=== PATIENT | female | born 1990 | race Caucasian/White ===

== ENCOUNTER 2017-09-30 11:02 | Emergency (ER) | payer BC ==
[~2017-09-30] VITALS: Ht 167.6 cm; Wt 70.0 kg
[~2017-09-30 11:02] MED LIST: COLACE100 MG PO; IBUPROFEN600 MG PO; PERCODAN TABLET1 TAB PO; PRENATAL COMPLE1 TAB PO
[2017-09-30 11:17] VITALS: Ht 167.6 cm; Wt 70.0 kg
[2017-09-30 12:11] LABS: BASOPHILS 0.4 % (0-2); EOSINOPHILS 0.7 % (0-7); HEMATOCRIT 40.7 % (36.0-48.0); HEMOGLOBIN 14.3 g/dL (12-16); IMMATURE GRANULOCYTES 0.1 % (0-5); LYMPHOCYTES 27.5 % (15-50); MCH 32.4 pg (26.0-34.0); MCHC 35.1 g/dL (31.0-37.0); MCV 92.1 fL (80.0-100.0); MEAN PLATELET VOLUME 9.7 fL (7.4-10.4); MONOCYTES 4.4 % (2-11); NEUTROPHILS 66.9 % (40-80); RBC 4.42 10x6/uL (4.00-5.40); RDW 13.2 % (11.5-14.5); WBC 6.8 10x3/uL (4.8-10.8)
[2017-09-30 12:18] LABS: PLATELET COUNT 319 10x3/uL (130-400)
[2017-09-30 12:34] LABS: APPEARANCE HAZY (CLEAR); BILIRUBIN NEGATIVE (NEGATIVE); COLOR YELLOW (YELLOW); GLUCOSE NEGATIVE (NEGATIVE); KETONE NEGATIVE (NEGATIVE); NITRITE NEGATIVE (NEGATIVE); PH 5.5 (5.0-6.0); PROTEIN NEGATIVE (NEGATIVE); UROBILINOGEN NORMAL (NORMAL)
[2017-09-30 12:35] LABS: HCG SERUM NEGATIVE (NEGATIVE)
[2017-09-30 12:38] LABS: BACTERIA MODERATE /hpf (NONE SEEN); CALCIUM OXALATE CRYSTALS OCC /hpf (NONE SEEN); EPITHELIAL CELLS 0-5 /hpf (0-5); HYALINE CAST RARE /lpf (NONE SEEN); MUCUS >1+ /lpf (NONE SEEN); RED CELLS - URINE 0-5 /hpf (0-5); WHITE CELLS - URINE 0-5 /hpf (0-5)
[2017-09-30] MEDS ORDERED: NAPROSYN500 MG PO (13:15)
[2017-09-30 13:31] VITALS: BP 113/77
== END 2017-09-30 13:30 | disposition home or self-care (01) ==
LOC: D.ER 11:02
PROVIDERS: Family Medicine
DX: N94.6 Dysmenorrhea, unspecified (principal); N92.0 Excessive and frequent menstruation with regular cycle

== ENCOUNTER 2017-11-01 05:13 | Emergency (ER) | payer BC ==
[~2017-11-01] VITALS: Ht 167.6 cm; Wt 68.2 kg
[~2017-11-01 05:13] MED LIST changes: +NAPROSYN500 MG PO
[2017-11-01 05:35] VITALS: Ht 167.6 cm; Wt 68.2 kg
[2017-11-01 06:41] LABS: APPEARANCE CLOUDY (CLEAR); BACTERIA MANY /hpf (NONE SEEN); BILIRUBIN NEGATIVE (NEGATIVE); COLOR YELLOW (YELLOW); EPITHELIAL CELLS 0-5 /hpf (0-5); GLUCOSE NEGATIVE (NEGATIVE); KETONE SMALL mg/dL (NEGATIVE); MUCUS >1+ /lpf (NONE SEEN); NITRITE POSITIVE (NEGATIVE); PROTEIN 3+ mg/dL (NEGATIVE); SPECIFIC GRAVITY 1.015 (1.005-1.020); UROBILINOGEN NORMAL (NORMAL); WHITE CELLS - URINE >50 /hpf (0-5)
[2017-11-01 06:55] LABS: ALBUMIN 3.4 g/dL (3.4-5.0); ALKALINE PHOSPHATASE 84 U/L (46-116); ALT (SGPT) 15 U/L (10-68); BILIRUBIN - TOTAL 0.98 mg/dL (0.2-1.3); CALC OSMOLALITY 276 mosm/kg (275-300); CALCIUM 8.8 mg/dL (8.5-10.1); CARBON DIOXIDE 26.9 mmol/L (21.0-32.0); CHLORIDE - SERUM 102 mmol/L (98-107); CREATININE - SERUM 0.6 mg/dL (0.6-1.3); GLUCOSE 114 mg/dL (74-106); HCG - QUANTITATIVE (MATERNAL) 0 mIU/mL; LIPASE 50 U/L (73-393); POTASSIUM - SERUM 3.4 mmol/L (3.5-5.1); SODIUM 139 mmol/L (136-145); UREA NITROGEN 6 mg/dL (7-18); eGFR NON AFRICAN AMERICAN > 90 mL/min (90-120)
[2017-11-01 07:13] LABS: BASOPHILS 0.2 % (0-2); EOSINOPHILS 0.1 % (0-7); HEMATOCRIT 34.7 % (36.0-48.0); HEMOGLOBIN 11.9 g/dL (12-16); IMMATURE GRANULOCYTES 0.2 % (0-5); MCH 31.7 pg (26.0-34.0); MCHC 34.3 g/dL (31.0-37.0); MCV 92.5 fL (80.0-100.0); MEAN PLATELET VOLUME 9.6 fL (7.4-10.4); NEUTROPHILS 84.5 % (40-80); RBC 3.75 10x6/uL (4.00-5.40); RDW 13.4 % (11.5-14.5); WBC 12.6 10x3/uL (4.8-10.8)
[2017-11-01 07:22] LABS: PLATELET COUNT 248 10x3/uL (130-400)
[2017-11-01] MEDS ORDERED: NAPROSYN500 MG PO (07:51)
[2017-11-01] MEDS ORDERED: LEVAQUIN500 MG PO (07:51)
[2017-11-01 09:02] VITALS: BP 129/76
== END 2017-11-01 08:46 | disposition home or self-care (01) ==
LOC: D.ER 05:13
PROVIDERS: Emergency Medicine
DX: N39.0 Urinary tract infection, site not specified (principal); E86.0 Dehydration; E87.6 Hypokalemia; R00.0 Tachycardia, unspecified; R11.10 Vomiting, unspecified